=== PATIENT | female | born 1995 | race Caucasian/White ===

== ENCOUNTER 2024-08-18 08:50 | Inpatient (IN) ==
--- NOTE | 2024-08-06 11:03 | Anesthesiology Consultation ---
Date of Service August 06, 2024 Assessment & Plan (1) Encounter for pre-operative examination: Chart Review Chart Review: Acceptable Risk for Surgery History Surgery Operation Date: 08/18/24 11:10 Proposed Procedures p Section (Delivery of Baby Through Abdominal Incision) - Sada Dennis MD, FACOG Height/Weight Height: 5 ft 2 in Weight: 81.647 kg Allergies Allergy/AdvReac Type Severity Reaction Status Date / Time No Known Allergies Allergy Verified 08/06/24 07:27 Medications Home Medications Medication Instructions Recorded Confirmed Last Taken vits 75-iron 28 mg-folic 1 pkg PO HS 11/27/22 08/06/24 Unknown acid 800 mcg-omega-3 oral combo pack (One A Day Women's DHA) magnesium 250 mg tablet 250 mg PO HS 04/04/23 08/06/24 04/15/23 19:00 cholecalciferol (vitamin D3) 25 25 mcg PO DAILY 02/14/24 08/06/24 Unknown mcg (1,000 unit) capsule acetone (urine) test (Ketone Urine #50 ea 03/28/24 08/06/24 Unknown Test strips) blood-glucose sensor (FreeStyle #2 ea 03/28/24 08/06/24 Unknown Agustin 3 Plus Sensor device) calcium carbonate [Tums] 1 - 2 tabs PO HS PRN Acid Reflux 07/01/24 08/06/24 Unknown famotidine 20 mg tablet 20 mg PO HS 08/06/24 08/06/24 Unknown ferrous sulfate 325 mg (65 mg 325 mg PO Q2D 08/06/24 08/06/24 Unknown iron) tablet (iron) fluticasone propionate 50 1 spray intranasal BID PRN 08/06/24 08/06/24 Unknown mcg/actuation nasal Allergies spray,suspension (Flonase Allergy Relief) sertraline 100 mg tablet (Zoloft) 100 mg PO QAM 08/06/24 08/06/24 Unknown Past Medical History Medical History Acid reflux Migraines Gestational diabetes Diet - Agustin Sensor Low ferritin level Anxiety Ovarian cyst s/p procedures - no issues anymore as per patient History of anemia "Borderline" oral - no blood transfusion/iron infusion Past Family History Family History Grandmother (Maternal) Family history of diabetes mellitus Father Heart disease Hypertension Stroke Other No family history of adverse response to anesthesia Denies family history of Ovarian cancer Prostate cancer Lung cancer Colorectal cancer Cancer Past Surgical History Surgical History History of surgery Egg Retrieval (under anesthesia) 2023 Status post laparoscopic fundoplication pt denies ever having History of laparoscopy x2 for endometriosis - had an endometrioma resected 2020 & 2023 [place] teeth removed Social History Smoking Status: Never smoker Do You Dip or Chew Tobacco: No Hx Alcohol Use: No Alcohol type: wine alcohol intake frequency: a few times a month Hx Substance Use: No substance use type: does not use Testing Laboratory Results Laboratory Tests 07/13/24 14:56 Hgb 11.7 L Plt Count 267 Potassium 3.7 Creatinine 0.52 L
--- NOTE | 2024-08-18 09:16 | History & Physical Report ---
Date of Service August 18, 2024 Assessment & Plan (1) with 37 weeks completed gestation: Plan: section. The patient was counseled to the nature of the procedure including alternatives such as labor. Risks were discussed including bleeding infection injury to bowel bladder ureter vessels and even baby. Deep Vein thrombosis, pulmonary embolus discussed. Breakdown of incision reviewed. Deep vein thrombosis pulmonary embolus hernia and failure of the incision to heal were discussed Patient verbalized understanding of this and was given ample time to ask questions Admission and Anticipated Discharge Date Admission Date: August 18, 2024 History of Present Illness Primary Care Provider: MARCIAL Moffett RAYA Calculator Estimated Delivery Date Method Current WG Current Estimate 08/24/24 Manual 38w 3d 5 day FET 12/07/23 Other Estimates 08/21/24 LMP (Certain) 38w 6d 08/25/24 Ultrasound #1 38w 2d LMP: 11/15/23 : 1 Full term: 0 Premature: 0 Total Number of Induced Abortions: 0 Total Number of Spontaneous Abortions: 0 Ectopics: 0 Multiple births: 0 Number of Living Children: 0 and Delivery Plans IVF/ICSI * Echo 05/20/24 @ [facility] [place] - nl *Growth US Q4wks @28wks *Weekly NSTs @36wks *Weekly CALLUM's @36wks(ICSI only) GDM w/16wk glucola *Begin monthly Growth US's @24wks Velamentous Cord Insertion and Bilobed Placenta *Growth US Q4wks @28wks *Weekly NSTs @36wks GBS Positive in Urine *Treat in Labor August 18 Primary C/S for Large EFW Allergies Allergy/AdvReac Type Severity Reaction Status Date / Time No Known Allergies Allergy Verified 08/13/24 08:38 Home Medications Medication Instructions Recorded Confirmed Type vits 75-iron 28 mg-folic 1 pkg PO HS 11/27/22 08/13/24 History acid 800 mcg-omega-3 oral combo pack (One A Day Women's DHA) magnesium 250 mg tablet 250 mg PO HS 04/04/23 08/13/24 History cholecalciferol (vitamin D3) 25 25 mcg PO DAILY 02/14/24 08/13/24 History mcg (1,000 unit) capsule acetone (urine) test (Ketone Urine #50 ea 03/28/24 08/13/24 Rx Test strips) blood-glucose sensor (FreeStyle #2 ea 03/28/24 08/13/24 Rx Agustin 3 Plus Sensor device) calcium carbonate [Tums] 1 - 2 tabs PO HS PRN Acid Reflux 07/01/24 08/13/24 History famotidine 20 mg tablet 20 mg PO HS 08/06/24 08/13/24 History ferrous sulfate 325 mg (65 mg 325 mg PO Q2D 08/06/24 08/13/24 History iron) tablet (iron) fluticasone propionate 50 1 spray intranasal BID PRN 08/06/24 08/13/24 History mcg/actuation nasal Allergies spray,suspension (Flonase Allergy Relief) sertraline 100 mg tablet (Zoloft) 100 mg PO QAM 08/06/24 08/13/24 History Patient History Medical History Acid reflux Migraines Gestational diabetes Diet - Agustin Sensor Low ferritin level Anxiety Ovarian cyst s/p procedures - no issues anymore as per patient History of anemia "Borderline" oral - no blood transfusion/iron infusion Surgical History History of surgery Egg Retrieval (under anesthesia) 2023 Status post laparoscopic fundoplication pt denies ever having History of laparoscopy x2 for endometriosis - had an endometrioma resected 2020 & 2023 [place] teeth removed Family History Grandmother (Maternal) Family history of diabetes mellitus Father Heart disease Hypertension Stroke Other No family history of adverse response to anesthesia Denies family history of Ovarian cancer Prostate cancer Lung cancer Colorectal cancer Cancer Social History Smoking Status: Never smoker Second Hand Exposure: No; Do You Dip or Chew Tobacco: No; Tobacco Cessation Education Requested by Patient: No Hx Alcohol Use: No Hx Substance Use: No Preferred Language: Swedish Communication Ability: Effective Visual Impairment: Limited Hearing Ability: Normal Air Control/Anti Air Warfare Officer Required: No Beliefs That Will Affect Care: None marital status: marital status details: Jordan (28) [phone] Current Living Situation: Spouse Current Living Situation Comment: lives with spouse, 1 dog current occupational status: employed current occupation: [employer] for [employer] How many Children do You have: 0 Other Information That Helps Us Care for You: No Feels Safe at Home: Yes Safety Concerns: Feels Safe At This Time Childhood Exposure to Second-Hand Smoke: Yes caffeine: Yes Dental Care, Regularly: Yes Physical Activity Frequency: 5-6 Times per Week Seatbelt Use: always Sunscreen Use: Yes Assistive Devices: Glasses Physical Exam Constitutional: WD/WN, vitals as above well developed and well nourished Respiratory: normal respiratory effort, lungs clear to auscultation normal respiratory effort Cardiovascular: RRR, no murmur, no edema Gastrointestinal (Abdomen): normal bowel sounds, soft, nontender, no hepatosplenomegaly Coding Level of Care Code None Diagnoses with 37 weeks completed gestation Z3A.37
[2024-08-18 09:58] LABS: Hematocrit (blood only) 33.3 % (37.0-47.0); Hemoglobin 11.2 g/dl (12.0-16.0); Mean Corpuscular Hemoglobin 29.6 pg (25.0-34.0); Mean Corpuscular Volume 88.1 fL (80.0-100.0); Platelet Count 228 K/uL (130-400); RDW Standard Deviation 41.3 fL (36.4-46.3); Red Blood Count 3.78 M/uL (4.20-5.40); White Blood Count 8.06 K/ul (4.8-10.8)
[2024-08-18] MEDS ORDERED: LACTATED RINGER'S 1,000 ML IV SCH (10:15)
[2024-08-18] MEDS: LACTATED RINGER'S 1,000 ML IV SCH ×3 (10:36→14:22)
[2024-08-18] MEDS: ACETAMINOPHEN 500 MG TAB PO SCH (10:45)
[2024-08-18] MEDS ORDERED: MoRPHine SULFATE PF 1 MG/ML 10 ML AMP/VIAL ONE (11:01)
[2024-08-18] MEDS ORDERED: OXYTOCIN 10 UNITS/ML VIAL ONE ×4 (12:35→12:37)
[2024-08-18] MEDS ORDERED: ONDANSETRON INJ 2 MG/ML 2 ML VIAL ONE (12:37)
[2024-08-18] MEDS ORDERED: PHENYLEPHRINE HCL 25 MG/250 ML NSS IV ONE (12:37)
--- NOTE | 2024-08-18 12:48 | Operative Report ---
Post Operative Report Pre & Post Diagnosis Operation Date: 08/18/24 11:10 Pre-Op Diagnosis: Estimated Weight 4500 grams; Elective Primary Caesarean Section Post-Op Diagnosis: Same;Delivery of a live male child at 1213 I identified the patient and participated in the time-out.: Yes Procedure Operation Date: 08/18/24 11:10 Actual Procedures p Section - Sada Dennis MD, FACOG Surgeon Sada Dennis MD, FACOG Biomedical Scientist Tamara Dow RN Quantitative Blood Loss (QBL) 490 Findings Consistent with Post-Op Diagnosis Specimens Cord blood Description of Procedure Regional anesthetic had been given by anesthesia patient was prepped and draped with a leftward tilt preoperative antibiotics had been given in appropriate timing by anesthesiology. Once the prep was allowed to fully dry timeout was performed. Pickups with teeth were used to test the incision area was found to be adequate for incision as the patient did not feel sharp pain. Scalpel was used to make a Pfannenstiel incision on the lower abdomen. We then cut through the subcutaneous fat down to the level of the anterior rectus sheath fascia this was cut in the midline and then extended laterally with the curved Perry scissors. At this stage we then placed 2 Jorge Alberto clamps on the anterior aspect of the fascia. Using the curved Perry's we are able to dissect the fascia superiorly away from the rectus muscles. Care was taken to maintain hemostasis. Jorge Alberto clamps were then placed to the inferior aspect of the anterior sheath of the fascia. Fascia was then dissected away from the rectus muscles inferiorly towards the pubic bone. A Jorge Alberto was then placed in the midline both inferiorly and superiorly. This was to allow exposure by retraction rectus muscles were in the midline with were then able to cut through the peritoneum and then enter the peritoneal cavity. Opening was enlarged to allow exposure of the peritoneal cavity both superiorly and inferiorly. Once adequate space was obtained a bladder retractor was placed to expose the lower segment Metzenbaums were used to dissect the bladder flap inferiorly away from the uterus. This was done sharply bladder retractor was then repositioned to expose the lower segment of the uterus Fresh scalpel was used to make a low transverse incision on the uterus. Uterus was then entered bluntly with the operators finger, membranes ruptured and the opening was enlarged using the operators fingers bluntly pulling superiorly and inferiorly to allow exposure. Baby was delivered by first flexion of the head elevation of the head out of the pelvis and then pressure by the delinquent tax collector assistant on the maternal abdomen. Baby's head was then delivered mouth and then nares were suctioned and then using gentle traction the baby was fully delivered. Live vigorous . Fluid was clear cord clamped and cut cord gases obtained cord blood obtained baby handed to pediatrics. Placenta removed was removed with traction we ensure the entire placenta was removed with a moist lap sponge into the uterus Uterus was then exteriorized. IV Pitocin had been started by anesthesia tone improved there were no extensions the uterus was then closed using 0 Monocryl in a 2 layer closure the first layer closed in a running locked fashion from left to right and then a second closure from left to right in a running nonlocked fashion. At this stage hemostasis was excellent. Uterus was placed back in the peritoneal cavity with suction irrigation out and inspection of the uterus at this stage revealed excellent hemostasis Retractors were removed urine color was clear at this stage of the case we inspected the rectus muscles they were hemostatic fascia was closed with 0 Vicryl subcutaneous fat was irrigated and closed with 3-0 Vicryl skin closed with 4-0 subcuticular Monocryl Note uterus was normal as well as adnexa the placenta was clearly bilobed and also clearly velamentous insertion entire placenta was ensured to be removed I attest to the content of the Intraoperative Record and any orders documented therein. Any exceptions are noted below. OB Procedure Charges 11373
[2024-08-18] MEDS ORDERED: MAGNESIUM HYDROXIDE SUSP 30 ML UDC PO PRN (13:03)
[2024-08-18] MEDS ORDERED: CALCIUM CARBONATE 500 MG CHEWABLE TAB PO PRN (13:03)
[2024-08-18] MEDS ORDERED: HYDROCORTISONE ACETATE 25 MG SUPP PR PRN (13:03)
[2024-08-18] MEDS ORDERED: BENZOCAINE 20% SPRY 85 APPLN/85 GM CAN EXT PRN (13:03)
[2024-08-18] MEDS ORDERED: SENNA 8.6 MG TAB PO PRN (13:03)
[2024-08-18] MEDS: KETOROLAC 30 MG/ML VIAL IV SCH (13:20)
[2024-08-18] MEDS: CITRIC ACID/SODIUM CITRATE 15 ML UDC PO SCH (14:22)
[2024-08-18] MEDS: SIMETHICONE 80 MG CHEW PO SCH (14:22)
--- NOTE | 2024-08-18 15:15 | Anesthesiology Progress Note ---
Date of Service August 18, 2024 Anesthesia Post Procedure Vital Signs Vital Signs: Temp Pulse Resp BP Pulse Ox 08/18/24 14:42 88 129/80 08/18/24 14:41 72 97 08/18/24 14:36 83 125/76 96 08/18/24 14:31 86 98 08/18/24 14:26 97 08/18/24 14:26 77 08/18/24 14:26 92 H 116/72 08/18/24 14:21 72 97 08/18/24 14:16 57 L 122/63 97 08/18/24 14:15 57 L 18 122/63 97 08/18/24 14:11 80 97 08/18/24 14:07 103 H 94 08/18/24 14:06 103 H 98 08/18/24 14:01 78 97 08/18/24 13:56 88 121/66 95 08/18/24 13:54 107 H 90 08/18/24 13:51 100 H 98 08/18/24 13:48 95 H 116/56 L 93 08/18/24 13:47 47 L 167/89 H 08/18/24 13:46 94 H 97 08/18/24 13:45 78 20 97 08/18/24 13:41 99 H 96 08/18/24 13:36 46 L 147/62 H 98 08/18/24 13:35 78 18 97 08/18/24 13:31 103 H 96 08/18/24 13:26 93 H 149/62 H 98 08/18/24 13:25 78 20 97 08/18/24 13:21 93 H 97 08/18/24 13:16 96 08/18/24 13:16 111 H 08/18/24 13:16 74 137/59 L 92 08/18/24 13:15 94 H 20 98 08/18/24 13:11 94 H 98 08/18/24 13:06 91 H 136/63 100 08/18/24 13:05 94 H 20 98 08/18/24 13:02 93 H 92 08/18/24 13:01 93 H 95 08/18/24 12:56 103 H 122/75 95 08/18/24 12:55 94 H 18 98 08/18/24 12:51 91 H 96 08/18/24 12:49 84 94 08/18/24 12:46 87 133/62 97 08/18/24 12:45 36.9 C 93 H 18 92 08/18/24 09:32 80 122/77 08/18/24 09:27 36.9 C 20 Transfer of Care Handoff Completed per policy Notes Mental Status: alert / awake / arousable Nausea / Vomiting: adequately controlled Pain: adequately controlled Airway Patency, RR, SpO2: stable & adequate BP & HR: stable & adequate Hydration State: stable & adequate Neuraxial Anesthesia: was administered and sensory block is resolving Anesthetic Complications: no major complications apparent and Pt Satisfied with anesthetic care
[2024-08-18] MEDS: ACETAMINOPHEN 325 MG TAB PO SCH (19:32)
[2024-08-18] MEDS ORDERED: NALOXONE HCL 0.4 MG/1 ML VIAL/CARP IV PRN (20:18)
[2024-08-18] MEDS ORDERED: MoRPHine SULFATE 2 MG/ML CARP IV PRN (20:18)
[2024-08-18] MEDS ORDERED: diphenhydrAMINE 50 MG/ML VIAL IV PRN (20:18)
[2024-08-18] MEDS ORDERED: ONDANSETRON INJ 2 MG/ML 2 ML VIAL IV PRN (20:18)
[2024-08-18] MEDS ORDERED: LACTATED RINGER'S 500 ML IV PRN (20:18)
[2024-08-18] MEDS ORDERED: NALOXONE HCL 0.08 MG in SYRINGE 1.8 ML IV PRN (20:18)
[2024-08-18] MEDS ORDERED: NALOXONE HCL 1 MG in SODIUM CHLORIDE 0.9% 1,000 ML IV PRN (20:18)
[2024-08-18] MEDS ORDERED: MEPERIDINE HCL 25 MG/ML CARP/VIAL IV PRN (20:18)
[2024-08-18] MEDS ORDERED: PROMETHAZINE 6.25 MG/50.25 ML BAG IV PRN (20:18)
[2024-08-18] MEDS ORDERED: HYDROmorphone INJ 0.5 MG/0.5 ML SYR IV PRN (20:18)
[2024-08-18] MEDS ORDERED: NO NARCOTICS OR SEDATIVES SCH (20:30)
[2024-08-18] MEDS ORDERED: DC INTRASPINAL MORPHINE SCH (20:30)
[2024-08-18] MEDS: DOCUSATE SODIUM 100 MG CAP PO SCH (21:49)
[2024-08-19] MEDS: NALBUPHINE HCL INJ 10 MG/ML AMP IV PRN (00:42)
[2024-08-19] MEDS ORDERED: ONDANSETRON INJ 2 MG/ML 2 ML VIAL IV PRN (06:00)
[2024-08-19] MEDS ORDERED: HYDROmorphone INJ 0.5 MG/0.5 ML SYR IV PRN (06:00)
[2024-08-19] MEDS ORDERED: PROMETHAZINE 12.5 MG/50.5 ML BAG IV PRN (06:00)
[2024-08-19] MEDS ORDERED: diphenhydrAMINE Capsule 25 MG CAP PO PRN (06:00)
[2024-08-19] MEDS ORDERED: diphenhydrAMINE 50 MG/ML VIAL IV PRN (06:00)
[2024-08-19 07:03] LABS: Hematocrit (blood only) 28.5 % (37.0-47.0); Hemoglobin 9.7 g/dl (12.0-16.0); Immature Granulocytes # (auto) 0.04 K/uL (0.01-0.20); Immature Granulocytes % (auto) 0.4 %; Mean Corpuscular Hemoglobin 29.9 pg (25.0-34.0); Mean Corpuscular Volume 88.0 fL (80.0-100.0); Platelet Count 206 K/uL (130-400); RDW Standard Deviation 41.5 fL (36.4-46.3); Red Blood Count 3.24 M/uL (4.20-5.40); White Blood Count 9.46 K/ul (4.8-10.8)
[2024-08-19] MEDS: OXYTOCIN 20 UNITS/LR 1,002 ML IV SCH (07:26)
[2024-08-19] MEDS: MoRPHine SULFATE PF 1 MG/ML 10 ML AMP/VIAL INT SPINAL ONE (07:26)
[2024-08-19] MEDS: DIPHTHER/TETAN/PERTUS Vaccine (Tdap, Adol/Adult) 0.5mL IM ONE (07:26)
[2024-08-19] MEDS: SODIUM CHLORIDE 0.9% 1,000 ML IV SCH (07:27)
[2024-08-19 07:45] VITALS: RESP 18
--- NOTE | 2024-08-19 08:12 | Obstetrical Progress Note ---
Date of Service <Christoph Tse MD - Last Filed: 08/19/24 08:53> August 19, 2024 Assessment & Plan <Christoph Tse MD - Last Filed: 08/19/24 08:53> (1) care and examination: 29yo post-op day 1 s/p Fells well today. Vital signs stable Continue post- care Encourage ambulation and Pain controlled with tylenol and toradol Hgb stable <Alisha Lamb MD - Last Filed: 08/20/24 13:10> (1) care and examination: Subjective <Christoph Tse MD - Last Filed: 08/19/24 08:53> 29yo post-op day 1 s/p Ambulation: ambulating normally Voiding: no voiding problems Passing Gas:: Yes Diet Tolerance:: regular diet Lochia:: Small Feeding Type:: breast feeding Current Pain Level: 3/10 controlled with tylenol and toradol Resting comfortably this AM in NAD. Denies CHRISTIAN, CP, SOB, N/V/D, LE pain/swelling. Physical Exam <Christoph Tse MD - Last Filed: 08/19/24 08:53> General: patient resting comfortably, NAD, non-toxic in appearance, AA&O x 4, answers questions appropriately. Skin: warm, dry, intact HEENT: NC/AT, anicteric sclera, conjunctiva without injection, moist mucus membranes. Heart: +S1/S2, regular, no m/r/g Lungs: equal air entry bilaterally, no rales/rhonchi/wheezes Abd: +BS, soft, NT/ND, uterine fundus firm at umbilicus, caesarean incision C/D/I. Ext: warm, no clubbing/cyanosis, 2+ edema B/L in feet and distal leg, Andrew's neg. Neuro: nonfocal, patient AA&O x 4, speech intact, no facial droop, moving all extremities on command. Results & Data <Christoph Tse MD - Last Filed: 08/19/24 08:53> Vital Signs (Past 12 Hours) Vital Signs Temp Pulse Resp BP Pulse Ox O2 Del Method 08/19/24 07:44 36.6 C 66 18 111/74 98 Room Air 08/19/24 04:05 36.8 C 77 16 102/69 08/18/24 23:50 16 96 08/18/24 23:50 37.0 C 71 16 133/82 95 Room Air 08/18/24 22:30 20 99 08/18/24 21:30 20 100 08/18/24 20:30 20 100 Supervising Physician <Alisha Lamb MD - Last Filed: 08/20/24 13:10> Co-Signing Physician Notes Resident Physician Supervision Note: I interviewed and examined the patient. Discussed with Dr. Tse and agree with findings and plan as documented in the note. Any exceptions or clarifications are listed here: [ ] Documented By: Alisha Lamb MD, FACOG
[2024-08-19] MEDS: PRENATAL VITAMIN 1 TAB PO SCH (09:03)
[2024-08-19] MEDS: FERROUS SULFATE 325 MG TAB PO SCH (09:03)
[2024-08-19] MEDS: SERTRALINE HCL 100 MG TABLET PO SCH (09:38)
[2024-08-19] MEDS ORDERED: KETOROLAC 30 MG/ML VIAL IV PRN (12:46)
[2024-08-19] MEDS: IBUPROFEN 600 MG TAB PO SCH (13:03)
--- NOTE | 2024-08-20 05:30 | Obstetrical Progress Note ---
Date of Service <Christoph Tse MD - Last Filed: 08/20/24 07:36> August 20, 2024 Assessment & Plan <Christoph Tse MD - Last Filed: 08/20/24 07:36> (1) care and examination: Plan 29yo post-op day 2 s/p Fells well today. Vital signs stable Continue post- care Encourage ambulation and Pain controlled with tylenol and ibuprofen Hgb stable Stable for d/c <Trish Sue DO - Last Filed: 08/20/24 08:28> (1) care and examination: Subjective <Christoph Tse MD - Last Filed: 08/20/24 07:36> 29yo post-op day 2 s/p Ambulation: ambulating normally Voiding: no voiding problems Passing Gas:: Yes Diet Tolerance:: regular diet Lochia:: Small Feeding Type:: breast and bottle feeding Current Pain Level: 4/10 controlled with tylenol and ibuprofen Resting comfortably this AM in NAD. Denies CHRISTIAN, CP, SOB, N/V/D, LE pain/swelling. Physical Exam <Christoph Tse MD - Last Filed: 08/20/24 07:36> General: patient resting comfortably, NAD, non-toxic in appearance, answers questions appropriately. Skin: warm, dry, intact HEENT: NC/AT, anicteric sclera, conjunctiva without injection, moist mucus membranes. Heart: S1/S2 heard, regular, no m/r/g Lungs: equal air entry bilaterally, no rales/rhonchi/wheezes Abd: +BS, soft, NT/ND, uterine fundus firm at umbilicus, caesarian incision C/D/I. Ext: warm, no clubbing/cyanosis or edema, Andrew's neg. Neuro: nonfocal, patient AAOx4, speech intact, no facial droop, moving all extremities on command. Results & Data <Christoph Tse MD - Last Filed: 08/20/24 07:36> Vital Signs (Past 12 Hours) Vital Signs Temp Pulse Resp BP Pulse Ox O2 Del Method 08/19/24 23:50 Room Air 08/19/24 23:50 36.8 C 76 18 117/74 96 Room Air Supervising Physician <Trish Sue DO - Last Filed: 08/20/24 08:28> Co-Signing Physician Notes Resident Physician Supervision Note: I interviewed and examined the patient. Discussed with Dr. Tse and agree with findings and plan as documented in the note. Any exceptions or clarifications are listed here: POD#2 doing well. DC home, instructions discussed, followup in office 6w PP. Declines Rx for narcotic. Documented By: Trish Sue DO
[2024-08-20 07:39] LABS: Hematocrit (blood only) 29.4 % (37.0-47.0); Hemoglobin 9.9 g/dl (12.0-16.0)
[2024-08-20 10:57] VITALS: BP 122/75; TEMP 99.1; O2SAT 99
[2024-08-20 11:06] VITALS: PULSE 76
[2024-08-20] MEDS: IBUPROFEN 600 MG TAB PO PRN (13:42)
[2024-08-20] MEDS ORDERED: ACETAMINOPHEN 325 MG TAB PO PRN (18:46)
--- NOTE | 2024-08-23 06:52 | Discharge Summary ---
Date of Service August 23, 2024 Admission HPI Per Admitting Provider RAYA Calculator Estimated Delivery Date Method Current WG Current Estimate 08/24/24 Manual 38w 3d 5 day FET 12/07/23 Other Estimates 08/21/24 LMP (Certain) 38w 6d 08/25/24 Ultrasound #1 38w 2d LMP: 11/15/23 : 1 Full term: 0 Premature: 0 Total Number of Induced Abortions: 0 Total Number of Spontaneous Abortions: 0 Ectopics: 0 Multiple births: 0 Number of Living Children: 0 and Delivery Plans IVF/ICSI * Echo 05/20/24 @ [facility] [place] - nl *Growth US Q4wks @28wks *Weekly NSTs @36wks *Weekly CALLUM's @36wks(ICSI only) GDM w/16wk glucola *Begin monthly Growth US's @24wks Velamentous Cord Insertion and Bilobed Placenta *Growth US Q4wks @28wks *Weekly NSTs @36wks GBS Positive in Urine *Treat in Labor August 18 Primary C/S for Large EFW Admission Exam (Per Admitting) Constitutional WD/WN, vitals as above well developed and well nourished Respiratory normal respiratory effort, lungs clear to auscultation normal respiratory effort Cardiovascular RRR, no murmur, no edema Gastrointestinal (Abdomen) normal bowel sounds, soft, nontender, no hepatosplenomegaly Discharge Data Consultations 08/18/24 09:14 Consult Anesthesiology Stat Procedures Performed Operation Date: 08/18/24 11:10 Actual Procedures p Section - [facility] ([facility]) care and examination: 29yo post-op day 1 s/p Fells well today. Vital signs stable Continue post- care Encourage ambulation and Pain controlled with tylenol and toradol Hgb stable Supervising Physician Co-Signing Physician Notes Resident Physician Supervision Note: I interviewed and examined the patient. Discussed with Dr. Tse and agree with findings and plan as documented in the note. Any exceptions or clarifications are listed here: [ ] Documented By: Alisha Lamb MD, [facility] Coding Level of Care Code None Diagnoses care and examination Z39.2
== END 2024-08-20 15:35 | disposition home or self-care (01) | DRG 788 ==
LOC: EDSTATUS 08:50 → 4S1 09:10 → 4E2 15:09
DX: O43.193 Other malformation of placenta, third trimester; F41.9 Anxiety disorder, unspecified; O43.123 Velamentous insertion of umbilical cord, third trimester; O24.420 Gestational diabetes mellitus in childbirth, diet controlled; O99.344 Other mental disorders complicating childbirth; Z37.0 Single live birth; O36.62X0 Maternal care for excessive fetal growth, second trimester, not applicable or unspecified; Z79.899 Other long term (current) drug therapy; Z3A.37 37 weeks gestation of pregnancy; O99.824 Streptococcus B carrier state complicating childbirth